=== PATIENT | female | born 1950 | race Two or more races ===

== ENCOUNTER 2017-06-11 11:08 | Outpatient (CLI) | payer OTHER ==
[~2017-06-11 11:08] MED LIST: ATIVAN2 M1; LAMICTAL25 MG; MIRTAZAPINE45 MG; PAXIL30 MG
== END 2017-06-11 11:15 | disposition home or self-care (01) ==
LOC: RAD 11:08
DX: M99.03 Segmental and somatic dysfunction of lumbar region (principal); M99.01 Segmental and somatic dysfunction of cervical region; M54.2 Cervicalgia; M25.561 Pain in right knee; M25.562 Pain in left knee

== ENCOUNTER 2017-06-11 11:16 | Outpatient (CLI) | payer OTHER | END 2017-06-11 11:20 | disposition home or self-care (01) | LOC: MAMO-SONO 11:16 | DX: Z12.31 Encounter for screening mammogram for malignant neoplasm of breast (principal); Z87.898 Personal history of other specified conditions; Z12.39 Encounter for other screening for malignant neoplasm of breast ==

== ENCOUNTER 2017-06-11 11:22 | Outpatient (CLI) | payer OTHER | END 2017-06-11 11:25 | disposition home or self-care (01) | LOC: MRI 11:22 | DX: M25.562 Pain in left knee (principal) | CPT/HCPCS: 73718 ==

== ENCOUNTER 2017-06-11 15:15 | Outpatient (CLI) | payer OTHER | END 2017-06-11 15:30 | disposition home or self-care (01) | LOC: NUCLEAR 15:15 | DX: M81.0 Age-related osteoporosis without current pathological fracture (principal) ==

== ENCOUNTER 2017-07-26 12:31 | Outpatient (CLI) | payer OTHER | END 2017-07-26 12:52 | disposition home or self-care (01) | LOC: RAD 12:31 | DX: J45.41 Moderate persistent asthma with (acute) exacerbation (principal); R06.02 Shortness of breath ==

== ENCOUNTER 2017-11-10 11:26 | Outpatient (CLI) | payer OTHER | END 2017-11-10 11:30 | disposition home or self-care (01) | LOC: RAD 11:26 | DX: M25.562 Pain in left knee (principal) ==

== ENCOUNTER 2018-01-02 12:55 | Outpatient (CLI) | payer OTHER | END 2018-01-02 13:09 | disposition home or self-care (01) | LOC: RAD 12:55 | DX: M25.511 Pain in right shoulder (principal); M25.512 Pain in left shoulder ==

== ENCOUNTER 2018-02-04 10:48 | Outpatient (CLI) | payer OTHER | END 2018-02-04 10:58 | disposition home or self-care (01) | LOC: MRI 10:48 | DX: G25.0 Essential tremor (principal) | CPT/HCPCS: 70553; A9579 ==

== ENCOUNTER 2018-07-25 14:04 | Outpatient (CLI) | payer OTHER | END 2018-07-25 14:10 | disposition home or self-care (01) | LOC: RAD 14:04 | DX: J45.40 Moderate persistent asthma, uncomplicated (principal); G47.33 Obstructive sleep apnea (adult) (pediatric); E66.01 Morbid (severe) obesity due to excess calories; R06.02 Shortness of breath ==

== ENCOUNTER 2018-08-01 13:31 | Outpatient (CLI) | payer OTHER | END 2018-08-01 13:38 | disposition home or self-care (01) | LOC: RAD 13:31 | DX: M54.5 Low back pain (principal); M17.11 Unilateral primary osteoarthritis, right knee ==

== ENCOUNTER → 2018-08-05 | Outpatient (CLI) | payer OTHER | END | disposition home or self-care (01) | LOC: MRI 10:45 | DX: M25.562 Pain in left knee (principal); R52 Pain, unspecified | CPT/HCPCS: 73721 ==